=== PATIENT | male | born 1960 | race Caucasian/White ===

== ENCOUNTER 2022-07-26 18:30 | Emergency (ER) | payer MEDICARE, MEDICAID ==
[~2022-07-26] VITALS: Ht 170.2 cm; Wt 100.0 kg
[2022-07-26] MEDS ORDERED: PREDNISONE 20MG TABLET PO STA (19:53)
[2022-07-26] MEDS ORDERED: IPRATROPIUM BROMIDE (0.02%) 0.5MG/2.5ML NEB HHN STA (19:53)
[2022-07-26] MEDS ORDERED: ALBUTEROL (0.083%) 2.5MG/3ML NEB HHN STA (19:53)
[2022-07-26] MEDS ORDERED: ALBU90AE INH (20:53)
[2022-07-26] MEDS ORDERED: P20 MT (20:54)
[2022-07-26 21:15] VITALS: BP 114/59
== END 2022-07-26 21:30 | disposition home or self-care (01) ==
LOC: ER 18:30
DX: J44.1 Chronic obstructive pulmonary disease with (acute) exacerbation (principal); R03.0 Elevated blood-pressure reading, without diagnosis of hypertension; Z87.01 Personal history of pneumonia (recurrent); Z59.00 Homelessness unspecified
CPT/HCPCS: 71045; 93005; 94640; 99283; J7512